=== PATIENT | female | born 1940 | race Asian ===

== ENCOUNTER 2016-06-29 14:39 | Emergency (ER) | payer SELFPAY ==
[~2016-06-29] VITALS: Ht 157.5 cm; Wt 60.0 kg
[2016-06-29 15:23] VITALS: BP 150/49
[2016-06-29] MEDS ORDERED: TETANUS, DIPHTHERIA, PERTUSSIS VAC/PF 0.5ML (>7YR OLD) IM ONE (16:45)
[2016-06-29] MEDS ORDERED: BACITRACIN ZINC OINT UDPKT TOP ONE (17:02)
[2016-06-29] MEDS ORDERED: BACITRACIN ZINC 15GM TUBE TOP SCH (21:00)
== END 2016-06-29 18:32 | disposition home or self-care (01) ==
LOC: ER 18:12
DX: S05.01XA Injury of conjunctiva and corneal abrasion without foreign body, right eye, initial encounter (principal); S80.212A Abrasion, left knee, initial encounter; S00.83XA Contusion of other part of head, initial encounter; S05.90XA Unspecified injury of unspecified eye and orbit, initial encounter; S09.93XA Unspecified injury of face, initial encounter; S80.219A Abrasion, unspecified knee, initial encounter; Z90.49 Acquired absence of other specified parts of digestive tract; Z98.890 Other specified postprocedural states; W18.30XA Fall on same level, unspecified, initial encounter; Y93.89 Activity, other specified; Y99.8 Other external cause status; Y92.89 Other specified places as the place of occurrence of the external cause
CPT/HCPCS: 90471; 90715; 99283